=== PATIENT | male | born 1980 | race Caucasian/White ===

== ENCOUNTER 2016-07-07 11:44 | Emergency (ER) ==
[2016-07-07 12:26] VITALS: BP 152/91
[2016-07-07] MEDS ORDERED: DECADRON IM ONE (12:30)
--- NOTE | 2016-07-07 12:30 | PROVIDER DOCUMENTATION ---
HPI-EENT General - General Chief Complaint: Sinus Pain Stated Complaint: COLD SX Time Seen by Provider: 07/07/16 12:19 Source: patient Allergies/Adverse Reactions: Patient Allergies Allergy/AdvReac Type Severity Reaction Status Date / Time Penicillins Allergy Unknown Verified 01/28/15 09:42 latex AdvReac ITCHING Verified 01/28/15 10:05 Home Medications: Home Medication List Medication Instructions Recorded Confirmed Last Taken Type Azithromycin [Zithromax Z-William] 250 mg PO DIRECTED #1 pkg 07/07/16 Unknown Rx Prednisone [Deltasone] 20 mg PO DIRECTED #12 tablet 07/07/16 Unknown Rx - History of Present Illness-EENT General Nature of Presenting Problem: 35 y/o WM c/o sinus headache, nasal congestion and nasal drainage x 2 weeks. Has been using otc medications such as mucinex DM without relief. Denies fevers , chills, cough, or ear pain. Denies sob or wheezing. Review of Systems - Adult - REVIEW OF SYSTEMS - ADULT Constitutional: reports: fatique. denies: chills, fever Eyes: reports: no symptoms reported. denies: decreased vision, blurred vision, double vision, eye pain Ears, Nose, Mouth & Throat: reports: see HPI. denies: ear pain, nose pain, throat pain Cardiovascular: reports: no symptoms reported. denies: chest pain, palpitations Respiratory: reports: see HPI. denies: cough, shortness of breath, wheezing Gastrointestinal: reports: no symptoms reported. denies: abdominal pain, diarrhea, nausea, vomiting Genitourinary: reports: no symptoms reported. denies: dysuria, discharge, frequency Musculoskeletal: reports: no symptoms reported. denies: bone pain, back pain, muscle aches Integumentary: reports: no symptoms reported. denies: rash Neurological: reports: no symptoms reported. denies: headache/migraines Psychiatric: reports: no symptoms reported Endocrine: reports: no symptoms reported Hematologic/Lymphatic: reports: no symptoms reported Allergic/Immunologic: reports: no symptoms reported All Other Systems: Reviewed and Negative Past History - Adult - PAST MEDICAL HISTORY-ADULT Review of Records: reports: Old Records Reviewed, Nursing Assessment Review, Medications Reviewed, Social history reviewed & non-contributory. Major Childhood Illnesses: reports: denies history Cardiovascular: reports: denies history Respiratory: reports: denies history Gastrointestinal: reports: denies history Genitourinary: reports: kidney stones Musculoskeletal: reports: denies history Neurological: reports: denies history Endocrine/Immune: reports: denies history Other Conditions: reports: denies history - PRIOR SURGERIES/PROCEDURES Surgical/Procedure History: reports: reviewed, not pertinent, other - IMMUNIZATION STATUS Childhood Immunizations: See Nurse Assessment Flu Vaccine: See Nurse Assessment - FAMILY HISTORY Family History: reviewed, not pertinent - SOCIAL HISTORY Smoking: less than 1 pack/day Provider spent 3-5 mins advising pt. on dangers of tobacco.: Discussed manners to quit use, and f/u contacts for add'l counseling. Substance Use: none/never Alcohol Use Frequency: never Physical Exam- EENT - Physical Exam EENT Initial Vital Signs Reviewed: Yes General Appearance: appears well, alert, no apparent distress Eye Exam: bilateral eye: normal inspection, PERRL, EOMI Ear Exam: bilateral ear: auricle normal, canal normal, TM normal Nasal Exam: normal inspection Throat Exam: pharynx normal Neck: non-tender, full range of motion, supple, normal inspection. negative: lymphadenopathy Respiratory: chest non-tender, lungs clear, normal breath sounds, no pleuratic chest pain, no respiratory distress, no accessory muscle use. negative: respiratory distress, decreased breath sounds, accessory muscle use, crackles, rales, rhonchi, wheezing Cardiovascular: normal peripheral pulses, regular rate, rhythm Extremity: non-tender, normal gait Integumentary: normal color, normal turgor, warm/dry Neurologic: grossly normal, no motor/sensory deficits Psych/Mental Status: normal mood/affect, normal thought content, normal thought process, oriented x 3 Progress - PLAN OF CARE/RESULTS Progress/Plan/Lab Results: Vital Signs Temp Pulse Resp BP Pulse Ox 07/07/16 11:47 98 F 105 H 18 152/91 99 Penicillins Allergy (Verified 01/28/15 09:42) Unknown latex Adverse Reaction (Verified 01/28/15 10:05) ITCHING No Home Medications 07/07/16 Orders Category Date Time Status Dexamethasone [Decadron] Med 07/07/16 12:30 Discontinued 4 mg IM NOW ONE Departure - Departure Time of Disposition Order: 12:29 DIAGNOSIS: Acute sinus infection Qualifiers: Sinusitis location: frontal Recurrence: non-recurrent Qualified Code(s): J01.10 - Acute frontal sinusitis, unspecified Disposition: HOME 01 Certified Medical Emergency: Emergent Condition: Stable Additional Instructions: ED Follow Up Instructions: You have been treated by a care provider in the Emergency Department. These instructions are being provided to you so you can have an understanding of how to care for yourself upon discharge. Upon discharge from the Emergency Department, you are responsible for making arrangements for follow-up care by a physician of your choice. Take all prescribed medications as directed. Return to the Emergency Department immediately for any new or worsening symptoms. You may call the Physician Referral phone number at [phone] to obtain a list of Physicians who are taking new patients. Prescriptions: Prednisone [Deltasone] 20 mg PO DIRECTED #12 tablet Azithromycin [Zithromax Z-William] 250 mg PO DIRECTED #1 pkg Referrals: None,PCP [Primary Care Provider] - Attestation - Physician/ REDDY Attestation Patient care was provided by Advanced Practice Provider:: Yes Advanced Practice Provider:: Elvia Rodgers Advanced Practice Provider documentation review:: The Mid-level provider documentation, treatment plan and medical decision making was reviewed by the physician who agrees with all treatment and medical decision making by the MLP.
== END 2016-07-07 12:43 | disposition home or self-care (01) ==
LOC: P.ED 11:44
DX: J01.10 Acute frontal sinusitis, unspecified (principal); R51 Headache; R09.81 Nasal congestion; R53.83 Other fatigue; F17.210 Nicotine dependence, cigarettes, uncomplicated; Z71.6 Tobacco abuse counseling